=== PATIENT | male | born 1990 | race Caucasian/White ===

== ENCOUNTER 2018-05-16 07:39 | Emergency (ER) | payer BC, SELFPAY ==
--- NOTE | 2018-05-16 08:13 | ER ---
Nurse's Notes [facility] Name: Fred Billings Age: 27 yrs Sex: Male : 1990 Arrival Date: 05/16/2018 Time: 07:41 Bed 18 Private MD: Wilson Velasquez R Diagnosis: Hemorrhoids and perianal venous thrombosis Presentation: 05/16 07:51 Presenting complaint: Patient states: "I have had a hemorrhoid for about 2 weeks, I em have been using OTC stuff but it is not working. I am here to get it removed" denies fever or bleeding, rates pain 9/10. Transition of care: patient was not received from another setting of care. Onset of symptoms was May 01, 2018. Risk Assessment: Do you want to hurt yourself or someone else? Patient reports no desire to harm self or others. Initial Sepsis Screen: Does the patient meet any 2 criteria? No. Patient's initial sepsis screen is negative. Does the patient have a suspected source of infection? No. Patient's initial sepsis screen is negative. Care prior to arrival: None. 07:51 Method Of Arrival: Ambulatory em 08:00 Acuity: NORIS 4 hb Triage Assessment: 07:55 General: Appears in no apparent distress. uncomfortable, Behavior is calm, cooperative. em Pain: Complains of pain in rectum Pain currently is 9 out of 10 on a pain scale. Historical: - Allergies: 07:55 No Known Allergies; em - Home Meds: 07:55 None [Active]; em - PMHx: 07:55 None; em - PSHx: 07:55 None; em - Immunization history:: Adult Immunizations up to date. - Social history:: Smoking status: Patient/guardian denies using tobacco. - Ebola Screening: : Patient negative for fever greater than or equal to 101.5 degrees Fahrenheit, and additional compatible Ebola Virus Disease symptoms Patient denies exposure to infectious person Patient denies travel to an Ebola-affected area in the 21 days before illness onset No symptoms or risks identified at this time. Screenin:55 Abuse screen: Denies threats or abuse. Nutritional screening: No deficits noted. em Tuberculosis screening: No symptoms or risk factors identified. Fall Risk None identified. Assessment: 08:04 General: Appears in no apparent distress. uncomfortable, Behavior is calm, cooperative, em Denies fever. Pain: Complains of pain in rectum Pain currently is 9 out of 10 on a pain scale. Neuro: Level of Consciousness is awake, alert, obeys commands, Oriented to person, place, time, situation. Cardiovascular: Capillary refill < 3 seconds Patient's skin is warm and dry. Respiratory: Airway is patent Respiratory effort is even, unlabored, Respiratory pattern is regular, symmetrical. GI: Abdomen is flat. : No deficits noted. EENT: No signs and/or symptoms were reported regarding the EENT system. Derm: Skin is intact, is healthy with good turgor, Skin is pink, warm \\T\\ dry. Musculoskeletal: Capillary refill < 3 seconds, Range of motion: intact in all extremities. 08:12 Reassessment: I agree with previous assessment. hb Vital Signs: 07:55 BP 175 / 115; Pulse 85; Resp 18; Temp 97.9(TE); Pulse Ox 100% on R/A; Weight 113.4 kg; em Height 6 ft. 0 in. (182.88 cm); Pain 9/10; 08:21 BP 170 / 104; Pulse 87; Resp 18; Pulse Ox 99% on R/A; jb1 07:55 Body Mass Index 33.91 (113.40 kg, 182.88 cm) em 07:55 denies having BP problems, reports being anxious and nervous, provider notified em ED Course: 07:41 Patient arrived in ED. as 07:42 Wilson Velasquez MD is Private Physician. as 07:42 Papa Arcos PA is PHCP. [facility] 07:42 Cedric Adkins MD is Attending Physician. [facility] 07:43 Luis Felipe Pelletier LVN is Primary Nurse. em 07:55 Arm band placed on. em 07:55 Patient has correct armband on for positive identification. Placed in gown. Bed in low em position. Call light in reach. Side rails up X2. Pulse ox on. NIBP on. 08:09 Triage completed. hb 08:12 Alvin Alfonso MD is Referral Physician. m 08:31 No provider procedures requiring assistance completed. Patient did not have IV access em during this emergency room visit. Administered Medications: No medications were administered Outcome: 08:12 Discharge ordered by MD. martinez 08:31 Discharged to home ambulatory. em 08:31 Condition: good 08:31 Discharge instructions given to patient, Instructed on discharge instructions, follow up and referral plans. medication usage, Demonstrated understanding of instructions, follow-up care, medications, Prescriptions given X 1. 08:32 Patient left the ED. em Signatures: Blayne Crawford jb1 Papa Arcos PA PA octaviom Luis Felipe Pelletier, K 8 SCHOOL PRINCIPAL K 8 SCHO[employer] PRINCIPAL em Veronica Aguayo Heather, RN RN Corrections: (The following items were deleted from the chart) 08:11 07:55 BP 175 / 115; Pulse 85bpm; Resp 18bpm; Pulse Ox 100% RA; Temp 97.9F Temporal; em 113.4 kg; Height 6 ft. 0 in.; BMI: 33.9; Pain 9/10; em
--- NOTE | 2018-05-16 08:14 | EDPHYS ---
Physician Documentation [facility] Name: Fred Billings Age: 27 yrs Sex: Male : 1990 Arrival Date: 05/16/2018 Time: 07:41 Bed 18 Private MD: Wilson Velasquez R ED Physician Cedric Adkins HPI: 05/16 08:08 This 27 yrs old Male presents to ER via Ambulatory with complaints of jmm Hemorrhoids. 08:08 The patient presents to the emergency department with pain in the rectal area. Onset: jmm The symptoms/episode began/occurred gradually, 2 week(s) ago. Associate signs and symptoms: Pertinent negatives: abdominal pain, constipation, fever. This is a 27 year old male with no chronic medical conditions that presents to the ED with complaints of rectal pain and swelling. patient has taken otc medication with no relief. patient denies fever, patient denies abdominal pain. Historical: - Allergies: 07:55 No Known Allergies; em - Home Meds: 07:55 None [Active]; em - PMHx: 07:55 None; em - PSHx: 07:55 None; em - Immunization history:: Adult Immunizations up to date. - Social history:: Smoking status: Patient/guardian denies using tobacco. - Ebola Screening: : Patient negative for fever greater than or equal to 101.5 degrees Fahrenheit, and additional compatible Ebola Virus Disease symptoms Patient denies exposure to infectious person Patient denies travel to an Ebola-affected area in the 21 days before illness onset No symptoms or risks identified at this time. ROS: 08:08 Constitutional: Negative for fever, chills, and weight loss. jmm 08:08 Abdomen/GI: Positive for rectal pain. 08:08 All other systems are negative. Exam: 08:08 Constitutional: This is a well developed, well nourished patient who is awake, alert, jmm and in no acute distress. Head/Face: atraumatic. Eyes: EOMI, no conjunctival erythema appreciated ENT: Moist Mucus Membranes Neck: Trachea midline, Supple Chest/axilla: Normal chest wall appearance and motion. Cardiovascular: Regular rate and rhythm. No edema appreciated Respiratory: Normal respirations, no respiratory distress appreciated Abdomen/GI: Non distended, soft Back: Normal ROM 08:08 Skin: General appearance color normal MS/ Extremity: Moves all extremities, no obvious deformities appreciated, no edema noted to the lower extremities Neuro: Awake and alert, normal gait Psych: Behavior is normal, Mood is normal, Patient is cooperative and pleasant 08:08 Abdomen/GI: Rectal exam: hemorrhoid(s), external, with inflammation, with pain. Vital Signs: 07:55 BP 175 / 115; Pulse 85; Resp 18; Temp 97.9(TE); Pulse Ox 100% on R/A; Weight 113.4 kg; em Height 6 ft. 0 in. (182.88 cm); Pain 9/10; 08:21 BP 170 / 104; Pulse 87; Resp 18; Pulse Ox 99% on R/A; jb1 07:55 Body Mass Index 33.91 (113.40 kg, 182.88 cm) em 07:55 denies having BP problems, reports being anxious and nervous, provider notified em MDM: 08:06 Patient medically screened. [facility] 08:08 Data reviewed: vital signs, nurses notes. Counseling: I had a detailed discussion with [facility] the patient and/or guardian regarding: the historical points, exam findings, and any diagnostic results supporting the discharge/admit diagnosis, the need for outpatient follow up, to return to the emergency department if symptoms worsen or persist or if there are any questions or concerns that arise at home. ED course: Hemorrhoid is soft but inflammed. Patient will be put on a course of topical steroids and advised to follow up with GI for further evaluation. patient is otherwise given return precautions for increased pain, increased swelling, or fever. Patient understood and agrees with the plan of care. . 08:27 Counseling: I had a detailed discussion with the patient and/or guardian regarding: the [facility] presence of at least one elevated blood pressure reading (>120/80) during this emergency department visit. 03 07:44 Order name: Torin cruz; Complete Time: 07:51 [facility] Administered Medications: No medications were administered Disposition: 12:28 Co-signature as Attending Physician, Cedric Adkins MD I agree with the assessment and kdr plan of care. Disposition: 05/16/18 08:12 Discharged to Home. Impression: Hemorrhoids and perianal venous thrombosis. - Condition is Stable. - Discharge Instructions: Hemorrhoids, Nonsurgical Procedures for Hemorrhoids. - Prescriptions for Anusol- HC 2.5 % Rectal Cream - Apply to affected area 1 application by TOPICAL route every 8 hours As needed; 30 gram. - Medication Reconciliation Form, Thank You Letter, Antibiotic Education, Prescription Opioid Use form. - Follow up: Alvin Alfonso MD; When: 2 - 3 days; Reason: Recheck today's complaints, Continuance of care, Re-evaluation by your physician. Signatures: Cedric Adkins MD MD kdr Mickail, Joel, PA PA jmm Munoz, Edgar, LVN OIL GAUGER em Corrections: (The following items were deleted from the chart) 08:32 08:12 05/16/2018 08:12 Discharged to Home. Impression: Hemorrhoids and perianal venous em thrombosis. Condition is Stable. Forms are Medication Reconciliation Form, Thank You Letter, Antibiotic Education, Prescription Opioid Use. Follow up: Alvin Alfonso; When: 2 - 3 days; Reason: Recheck today's complaints, Continuance of care, Re-evaluation by your physician. michelle
== END 2018-05-16 08:32 | disposition home or self-care (01) ==
LOC: ER 07:39
DX: K64.5 Perianal venous thrombosis (principal); K64.9 Unspecified hemorrhoids
CPT/HCPCS: 99283

== ENCOUNTER 2022-09-03 06:55 | Emergency (ER) | payer SELFPAY ==
[2022-09-03] MEDS ORDERED: ONDANSETRON 4 MG/2 ML VIAL ONE (07:32)
[2022-09-03] MEDS ORDERED: NA CHLORIDE 0.9% 2,000 ML ONE (07:32)
[2022-09-03] MEDS ORDERED: KETOROLAC 30 MG/ML INJ ONE (07:33)
--- NOTE | 2022-09-03 08:00 | RAD REPORT ---
EXAM DESCRIPTION: Jatinder Single View09/03/2022 7:50 am CLINICAL HISTORY: CHEST PAIN COMPARISON: No comparisons TECHNIQUE: Portable AP view of the chest. FINDINGS: The lungs are clear apart from mild central interstitial prominence/streaky opacities. No pneumothorax or effusion. The cardiomediastinal contours are unremarkable. IMPRESSION: Mild central interstitial prominence or streaky opacities, could reflect mild interstiti al edema or infection, or reactive airway changes.
[2022-09-03 08:03] LABS: Absolute Lymphocytes (CBC) 0.5 K/uL (0.7-4.9); Hematocrit 50.9 % (39.6-49.0); Lymphocytes % 2.6 % (15.3-44.8); MCV 88.1 fL (80-100); MPV 7.9 fL (7.6-11.3); RBC Red Blood Cell Count 5.78 M/uL (4.33-5.43)
[2022-09-03 08:18] LABS: Albumin 4.1 g/dL (3.4-5.0); Bilirubin Total 1.3 mg/dL (0.2-1.0); Potassium 3.4 mEq/L (3.5-5.1); Protein, Total 8.6 g/dL (6.4-8.2)
--- NOTE | 2022-09-03 08:42 | RAD REPORT ---
EXAM DESCRIPTION: CT - Abdomen Pelvis W Contrast - 09/03/2022 8:19 am CLINICAL HISTORY: RLQ tendernes;Rebound tenderness COMPARISON: No comparisons TECHNIQUE: Thin cut axial CT imaging of the abdomen and pelvis was performed following intravenous a dministration of 100 mL Isovue 300. Multiplanar reformats were generated and reviewed. All CT scans are performed using dose optimization technique as appropriate and may include automated exposure control or mA/KV adjustment according to patient size. FINDINGS: No suspicious findings in the lung bases. The liver, spleen, and pancreas show no suspicious findings. Gallbladder and biliary tree are also wi thout suspicious finding. Symmetric renal function is seen with no hydronephrosis or suspicious renal mass. Mild fluid distention throughout proximal to mid small bowel with short-segment air-fluid levels. No focal transition point. No bowel wall thickening. The appendix is not well visualized. No free air, f ree fluid or inflammatory stranding. No hernia, mass or bulky lymphadenopathy. The urinary bladder is without significant finding. No suspicious bony findings. IMPRESSION: Proximal to mid small bowel mild fluid distention. Findings could relate to early ileus or enteritis.
[2022-09-03 09:09] LABS: Protime INR 1.06
[2022-09-03 09:10] LABS: Blood Morphology Comment NOT SEEN (NOT SEEN); Platelet Estimate ADEQ; White Blood Cell Scan OK (OK)
[2022-09-03 09:43] LABS: Urine Bacteria None Seen /HPF (<20); Urine Bilirubin NEGATIVE (Negative); Urine Blood Negative (Negative); Urine Clarity Clear (Clear); Urine Color Light-Yellow (Yellow); Urine Glucose NEGATIVE (Negative); Urine Mucus Slight /HPF (None Seen); Urine Protein 1+ (Negative); Urine RBC <5 /HPF (None Seen); Urine Urobilinogen Normal (Normal); Urine pH 7.5 (5.0-7.0)
[2022-09-03 09:50] LABS: Specific Gravity > 1.030 (1.005-1.030)
[2022-09-03] MEDS ORDERED: NA CHLORIDE 0.9% 1,000 ML ONE (10:03)
--- NOTE | 2022-09-03 10:28 | RAD REPORT ---
EXAM DESCRIPTION: CT - Thorax Wo Con - 09/03/2022 9:50 am CLINICAL HISTORY: CONGESTION COMPARISON: Abdomen Pelvis W Contrast dated 09/03/2022 TECHNIQUE: Axial thin cut images of the chest were obtained without IV contrast. Multiplanar reforma ts were generated and reviewed. All CT scans are performed using dose optimization technique as appropriate and may include automated exposure control or mA/KV adjustment according to patient size. FINDINGS: No mass or infiltrate in the lung parenchyma. No pleural thickening or pleural effusion. N o pneumothorax. No abnormal mediastinal or hilar masses or lymphadenopathy seen. No significant aortic or pulmonary a rtery findings. Assessment is limited in the absence of IV contrast. No chest wall mass or abnormal axillary lymphadenopathy. Evaluation of the solid abdominal structures reveals no suspicious findings. Diffuse hepatic parenchy mal hypoattenuation suggesting steatosis. Hyperdensities at the upper renal collecting systems may re late to contrast excretion. Incidentally noted small hemangioma within the body of T11. IMPRESSION: No acute process within the chest. Incidental findings as above.
[2022-09-03] MEDS ORDERED: PANTOPRAZOLE 40 MG INJ ONE (11:28)
--- NOTE | 2022-09-03 12:23 | ER ---
Nurse's Notes [facility] Name: Fred Billings Age: 32 yrs Sex: Male : 1990 Arrival Date: 09/03/2022 Time: 06:55 Bed 15 Private MD: Diagnosis: Essential (primary) hypertension;Vomiting Presentation: 09/03 07:10 Chief complaint: Patient states: he has had RLQ abdominal pain since midnight with ko1 nausea and vomiting and diarrhea. He also feels generalized weakness. Coronavirus screen: At this time, the client does not indicate any symptoms associated with coronavirus-19. Ebola Screen: No symptoms or risks identified at this time. Initial Sepsis Screen: Does the patient meet any 2 criteria? No. Patient's initial sepsis screen is negative. Initial Sepsis Screen: Does the patient meet any 2 criteria?. Initial Sepsis Screen: Does the patient meet any 2 criteria? No. Patient's initial sepsis screen is negative. Does the patient have a suspected source of infection? No. Patient's initial sepsis screen is negative. Risk Assessment: Do you want to hurt yourself or someone else? Patient reports no desire to harm self or others. Onset of symptoms was September 03, 2022 at 00:01. Care prior to arrival: None. Activity prior to arrival: Hyperventilating, vomiting. 07:10 Method Of Arrival: Ambulatory ko1 07:10 Acuity: NORIS 3 ko1 Triage Assessment: 07:20 General: Appears distressed, uncomfortable, ill, Behavior is calm, appropriate for age. ko1 Pain: Complains of pain in right lower quadrant. Respiratory: Reports shortness of breath at rest Onset: The symptoms/episode began/occurred gradually, the patient has moderate shortness of breath. Historical: - Allergies: 07:20 PENICILLINS; ko1 - Home Meds: 07:20 None [Active]; ko1 - PMHx: 07:20 None; ko1 - Immunization history:: Adult Immunizations unknown. - Social history:: Smoking status: Patient denies any tobacco usage or history of. Screenin:29 [facility] ED Fall Risk Assessment (Adult) History of falling in the last 3 months, ko1 including since admission No falls in past 3 months (0 pts) Confusion or Disorientation No (0 pts) Intoxicated or Sedated No (0 pts) Impaired Gait No (0 pts) Mobility Assist Device Used No (0 pt) Altered Elimination No (0 pt) Score/Fall Risk Level 0 - 2 = Low Risk Oriented to surroundings, Maintained a safe environment, Educated pt \T\ family on fall prevention, incl call for assistance when getting out of bed, Assessed \T\ reinforced patient's understanding of fall precautions, Provided non-skid footwear, Hourly rounding (assess needs \T\ fall precautionary measures) done, Used ambulatory aids as needed (educated on \T\ assisted with), Used gait belt as appropriate. Abuse screen: Denies threats or abuse. Denies injuries from another. Nutritional screening: No deficits noted. Tuberculosis screening: No symptoms or risk factors identified. Assessment: 07:29 Reassessment: labs delayed due to difficult IV start. Neuro: No deficits noted. ko1 Cardiovascular: Rhythm is sinus tachycardia. Respiratory: Airway is patent Respiratory effort is even, Respiratory pattern is tachypnea Breath sounds are clear. GI: Reports lower abdominal pain, diarrhea, nausea, vomiting, since midnight. : No deficits noted. EENT: No deficits noted. Derm: No deficits noted. Musculoskeletal: No deficits noted. Vital Signs: 07:10 BP 191 / 114; Pulse 118; Resp 20; Temp 98.1; Pulse Ox 100% ; ko1 07:29 BP 170 / 122; Pulse 113; Resp 20; Pulse Ox 100% ; ko1 08:00 BP 152 / 127; Pulse 110; Resp 22; Pulse Ox 100% ; ko1 08:45 BP 157 / 105; Pulse 112; Resp 19; Pulse Ox 99% on R/A; ko1 08:54 BP 151 / 113; Pulse 106; Resp 28; Pulse Ox 100% ; ko1 09:19 Weight 117.93 kg; Height 6 ft. 2 in. ; em1 11:26 BP 161 / 126; Pulse 106; Resp 18; Pulse Ox 99% on R/A; ko1 12:04 BP 170 / 105; Pulse 104; Resp 22; Pulse Ox 99% ; ko1 09:19 Body Mass Index 33.38 (117.93 kg, 187.96 cm) em1 ED Course: 06:56 Patient arrived in ED. ja2 07:01 Karol Clinton RN is Primary Nurse. ko1 07:05 Elio Lunsford MD is Attending Physician. bs3 07:20 Triage completed. ko1 07:20 Arm band placed on right wrist. Patient placed in an exam room, on a stretcher, on ko1 pulse oximetry. 07:20 Missed attempt(s): 20 gauge in left antecubital area. ko1 07:29 Patient has correct armband on for positive identification. Bed in low position. Call ko1 light in reach. Side rails up X 1. Pulse ox on. NIBP on. Door closed. Noise minimized. Lights dimmed. Warm blanket given. 07:52 XRAY Chest (1 view) In Process Unspecified. EDMS 07:56 Inserted saline lock: 22 gauge in left antecubital area, using aseptic technique. ss ,using aseptic technique. US guided. Pt tolerated well. Blood collected. 08:02 CBC with Diff Sent. ko1 08:02 Comprehensive Metabolic Panel Sent. ko1 08:21 CT Abd/Pelvis - IV Contrast Only In Process Unspecified. EDMS 08:45 Blood Culture Adult (2) Sent. ko1 08:45 Lactate w/ 2H reflex if indic. Sent. ko1 08:46 CBC Smear Scan Sent. ko1 08:53 Protime (+inr) Sent. ko1 08:53 Ptt, Activated Sent. ko1 09:01 EKG done, by ED staff, reviewed by Elio Lunsford MD. em1 09:22 Troponin High Sensitivity Sent. ko1 09:30 Urinalysis w/ reflexes Sent. ko1 09:52 CT Chest Wo Con In Process Unspecified. EDMS 12:23 No provider procedures requiring assistance completed. IV discontinued, intact, ko1 bleeding controlled, No redness/swelling at site. Pressure dressing applied. Administered Medications: 08:01 Drug: NS 0.9% IV 2000 ml Route: IV; Rate: 1000 ml; Site: left antecubital; ko1 11:23 Follow up: Response: No adverse reaction; IV Status: Completed infusion; IV Intake: ko1 2000ml 08:01 Drug: Ondansetron IVP 4 mg Route: IVP; Site: left antecubital; ko1 11:23 Follow up: Response: No adverse reaction; Nausea is decreased ko1 08:01 Drug: Ketorolac IVP 15 mg Route: IVP; Site: left antecubital; ko1 11:24 Follow up: Response: No adverse reaction; Pain is decreased ko1 08:47 Drug: Rocephin IV 1 grams Route: IV; Rate: 1 bolus; Site: left antecubital; ko1 11:23 Follow up: Response: No adverse reaction ko1 09:53 Drug: NS 0.9% IV (30 ml/kg) 30 ml/kg Route: IV; Rate: bolus; Site: left antecubital; ko1 11:25 Follow up: IV Status: Completed infusion ko1 11:19 Drug: Pantoprazole IVP 40 mg Route: IVP; Site: left antecubital; ko1 11:25 Follow up: Response: No adverse reaction ko1 Medication: 07:29 VIS not applicable for this client. ko1 Intake: 11:23 IV: 2000ml; Total: 2000ml. ko1 Outcome: 12:23 Discharge ordered by . bs3 12:23 Discharged to home ambulatory, with family. ko1 12:23 Condition: improved 12:23 Discharge instructions given to patient, family, Instructed on discharge instructions, follow up and referral plans. medication usage, Demonstrated understanding of instructions, follow-up care, medications, Prescriptions given X 3. 12:39 Patient left the ED. ko1 Signatures: Dispatcher [employer] EDMS Daniel Aguayo em1 La Nena Mireles, RN RN ss Ginny Alegria Brandon, MD MD bs3 Karol Clinton, JENNIFER RN ko1 Corrections: (The following items were deleted from the chart) 07:20 07:20 Allergies: No Known Allergies; ko1 ko1 11:43 11:22 LACTATE+C.LAB.BRZ drawn and sent. ko1 EDMS
--- NOTE | 2022-09-03 12:23 | EDPHYS ---
Physician Documentation [facility] Name: Fred Billings Age: 32 yrs Sex: Male : 1990 Arrival Date: 09/03/2022 Time: 06:55 Bed 15 Private MD: ED Physician Elio Lunsford HPI: 09/03 07:13 This 32 yrs old Male presents to ER via Unassigned with complaints of bs3 Breathing Difficulty, Flank Pain, Vomiting. 07:13 pt notes right lower abdominal pain since yesterday, associated nausea, vomiting, some bs3 diarrhea, pain moderate in intensity, progressive over time, he also notes a vague breathing difficulty associated with his pain. No recent travel, immbolization, hx of pe/dvd, leg swelling, recent travel or anything else bother him. Never had this pain before, no urinary symptoms. . Historical: - Allergies: 07:20 PENICILLINS; ko1 - Home Meds: 07:20 None [Active]; ko1 - PMHx: 07:20 None; ko1 - Immunization history:: Adult Immunizations unknown. - Social history:: Smoking status: Patient denies any tobacco usage or history of. ROS: 07:13 Constitutional: Negative for fever, chills bs3 07:13 All other systems are negative. Exam: 07:13 Constitutional: This is a well developed, well nourished patient who is awake, alert, bs3 and in no acute distress. Head/Face: Normocephalic, atraumatic. Eyes: Pupils equal round and reactive to light, extra-ocular motions intact. Lids and lashes normal. ENT: mmm, no posterior phyarngeal erythema Neck: Trachea midline, no thyromegaly, no neck stiffness Chest/axilla: Normal chest wall appearance and motion. Nontender with no deformity. No lesions are appreciated. Cardiovascular: Tachycardic, no murmur Respiratory: Lungs have equal breath sounds bilaterally, clear to auscultation, no respiratory distress Abdomen/GI: Tender in right lower quadrant with guarding no peritoneal signs Back: No spinal tenderness. No costovertebral tenderness. Full range of motion. Skin: Warm, dry with normal turgor. Normal color with no rashes, no lesions, and no evidence of cellulitis. MS/ Extremity: Pulses equal, no cyanosis. Neurovascular intact. Full, normal range of motion. Neuro: Awake and alert, GCS 15, oriented to person, place, time, and situation. Cranial nerves II-XII grossly intact. Motor strength 5/5 in all extremities. Sensory grossly intact. Psych: Awake, alert, with orientation to person, place and time. Behavior, mood, and affect are within normal limits. Vital Signs: 07:10 BP 191 / 114; Pulse 118; Resp 20; Temp 98.1; Pulse Ox 100% ; ko1 07:29 BP 170 / 122; Pulse 113; Resp 20; Pulse Ox 100% ; ko1 08:00 BP 152 / 127; Pulse 110; Resp 22; Pulse Ox 100% ; ko1 08:45 BP 157 / 105; Pulse 112; Resp 19; Pulse Ox 99% on R/A; ko1 08:54 BP 151 / 113; Pulse 106; Resp 28; Pulse Ox 100% ; ko1 09:19 Weight 117.93 kg; Height 6 ft. 2 in. ; em1 11:26 BP 161 / 126; Pulse 106; Resp 18; Pulse Ox 99% on R/A; ko1 12:04 BP 170 / 105; Pulse 104; Resp 22; Pulse Ox 99% ; ko1 09:19 Body Mass Index 33.38 (117.93 kg, 187.96 cm) em1 MDM: 07:05 Patient medically screened. bs3 11:18 Data reviewed: vital signs, nurses notes. ED course: Patient reassessed feeling much bs3 better. 11:54 ED course: Lactate improving on reassessment after IV fluid patient feeling much better.bs3 11:57 ED course: Labs notable for his leukocytosis and elevated glucose no anion gap he is bs3 markedly hypertensive he states that he has been hypertensive for years and has never followed up with a primary care doctor. 12:20 ED course: pt feeling much better, requesting to go home and sleep, will prescribe bs3 antihypertensive, and metformin to start if greater than 126 fasting, will give antiemetic. . 09/03 07:13 Order name: Comprehensive Metabolic Panel; Complete Time: 08:51 bs3 09/03 07:13 Order name: CBC with Diff; Complete Time: 09:16 bs3 09/03 07:13 Order name: Urinalysis w/ reflexes; Complete Time: 09:56 bs3 09/03 08:07 Order name: CBC Smear Scan; Complete Time: 09:16 EDMS 09/03 08:18 Order name: Blood Culture Adult (2) bs3 09/03 08:18 Order name: Lactate w/ 2H reflex if indic.; Complete Time: 09:16 bs3 09/03 08:18 Order name: Protime (+inr); Complete Time: 09:16 bs3 09/03 08:18 Order name: Ptt, Activated; Complete Time: 09:16 bs3 09/03 08:52 Order name: BNP; Complete Time: 09:16 bs3 09/03 09:19 Order name: Troponin High Sensitivity; Complete Time: 09:56 bs3 09/03 11:47 Order name: Lactate Sepsis 2 HR Follow-up; Complete Time: 11:49 EDMS 09/03 12:29 Order name: Glucose, Ancillary Testing EDMS 09/03 07:13 Order name: XRAY Chest (1 view); Complete Time: 08:17 bs3 09/03 07:13 Order name: CT Abd/Pelvis - IV Contrast Only; Complete Time: 08:51 bs3 09/03 09:19 Order name: CT Chest Wo Con; Complete Time: 10:30 bs3 09/03 08:18 Order name: EKG; Complete Time: 08:19 bs3 09/03 08:18 Order name: Accucheck; Complete Time: 08:46 bs3 09/03 08:18 Order name: Cardiac monitoring; Complete Time: 08:26 bs3 09/03 08:18 Order name: EKG - Nurse/Tech; Complete Time: 08:53 bs3 09/03 08:18 Order name: IV Saline Lock - Large Bore; Complete Time: 08:26 bs3 09/03 08:18 Order name: Labs collected and sent; Complete Time: 08:46 bs3 09/03 08:18 Order name: O2 Per Protocol; Complete Time: 08:26 bs3 09/03 08:18 Order name: O2 Sat Monitoring; Complete Time: 08:26 bs3 09/03 08:18 Order name: Vital Signs; Complete Time: 08:26 bs3 Administered Medications: 08:01 Drug: NS 0.9% IV 2000 ml Route: IV; Rate: 1000 ml; Site: left antecubital; ko1 11:23 Follow up: Response: No adverse reaction; IV Status: Completed infusion; IV Intake: ko1 2000ml 08:01 Drug: Ondansetron IVP 4 mg Route: IVP; Site: left antecubital; ko1 11:23 Follow up: Response: No adverse reaction; Nausea is decreased ko1 08:01 Drug: Ketorolac IVP 15 mg Route: IVP; Site: left antecubital; ko1 11:24 Follow up: Response: No adverse reaction; Pain is decreased ko1 08:47 Drug: Rocephin IV 1 grams Route: IV; Rate: 1 bolus; Site: left antecubital; ko1 11:23 Follow up: Response: No adverse reaction ko1 09:53 Drug: NS 0.9% IV (30 ml/kg) 30 ml/kg Route: IV; Rate: bolus; Site: left antecubital; ko1 11:25 Follow up: IV Status: Completed infusion ko1 11:19 Drug: Pantoprazole IVP 40 mg Route: IVP; Site: left antecubital; ko1 11:25 Follow up: Response: No adverse reaction ko1 Disposition Summary: 09/03/22 12:23 Discharge Ordered Location: Home bs3 Problem: new bs3 Symptoms: have improved bs3 Condition: Stable bs3 Diagnosis - Essential (primary) hypertension bs3 - Vomiting bs3 Followup: bs3 - With: Private Physician - When: 2 - 3 days - Reason: Re-evaluation by your physician Discharge Instructions: - Discharge Summary Sheet bs3 - Hypertension, Adult bs3 - Vomiting, Adult bs3 - Diabetes Mellitus Basics bs3 Forms: - Medication Reconciliation Form bs3 - Thank You Letter bs3 - Antibiotic Education bs3 - Prescription Opioid Use bs3 - [email or web address] bs3 Prescriptions: - amlodipine 10 mg Oral tablet - take 1 tablet by ORAL route daily for 30 days; 30 tablet; Refills: 0, Product bs3 Selection Permitted - Metformin 500 mg Oral Tablet - take 1 tablet by ORAL route once daily for 30 days Then take 1 tablet with bs3 morning meals AND evening meals; 30 tablet; Refills: 0, Product Selection Permitted - ondansetron 8 mg Oral tablet,disintegrating - take 1 tablet by ORAL route every 12 hours; 12 tablet; Refills: 0, Product bs3 Selection Permitted Signatures: Dispatcher [employer] Elio Devries MD MD bs3 Karol Clinton, RN RN ko1 Corrections: (The following items were deleted from the chart) 07:20 07:20 Allergies: No Known Allergies; ko1 ko1 11:43 11:02 LACTATE+C.LAB.BRZ ordered. EDMS EDMS
[2022-09-03 12:54] VITALS: TEMP 98.1
[2022-09-03 13:09] VITALS: O2SAT 99
[2022-09-03 13:10] VITALS: BP 170/105
--- NOTE | 2022-09-04 20:41 | EKG ---
Test Date: 2022-09-03 Test Time: 08:57:51 Teleradiologist: KATLYN MEASUREMENT RESULTS: Intervals: Rate: 110 [place]: 156 QRSD: 114 QT: 348 QTc: 470 [place]: P: 59 [place]: 156 QRS: 91 T: 92 INTERPRETIVE STATEMENTS: Sinus tachycardia Nonspecific T wave abnormality Abnormal ECG Compared to ECG 03/22/2013 03:27:02 T-wave abnormality now present Sinus rhythm no longer present Sinus arrhythmia no longer present Electronically Signed On 09-04-22 20:33:22 CDT by Neel Bonilla
== END 2022-09-03 12:39 | disposition home or self-care (01) ==
LOC: ER 06:55
DX: R11.10 Vomiting, unspecified (principal); I10 Essential (primary) hypertension
CPT/HCPCS: 36415; 71045; 71250; 74177; 80053; 81001; 82947; 83605; 83880; 84484; 85025; 85610; 85730; 87040; 93005; C9113; J2405; J7030; Q9967

== ENCOUNTER 2024-07-21 00:46 | Emergency (ER) | payer BC, SELFPAY ==
--- OUTSIDE RECORDS SUMMARY | 2024-07-21 00:50 | XMS REPORT | Continuity of Care Document ---
Author Name Unknown Address [address] [facility] [place] [address] [facility] Address [address] [facility] [place] [address] Care Team Providers Care Brake Operator Name Role Phone WHITNEYKOURTNEYRAGHAV JAUNELLIOTT Primary Care Physician Unavailable Jordan MCCRACKEN, Sharri Rick Attending Clinician ASHIA LUA Attending Clinician Unavailable Ashia Lua MD Attending Clinician ASHIA LUA Admitting Clinician Unavailable Payers Payer Name Policy Type Policy Number Effective Date Expirati on Date Source Allergies, Adverse Reactions, Alerts Allergy Name Allergy Type Status Severity Reaction(s) Onset Date Inactive Date Treating Clinician Comments Source PENICILL INS Drug Class Active Rash 2022-03 00:00: 00 [facility] acute hospital Penicill ins Propensi ty to adverse reaction s Active Rash 2022-03 2 00:00: 00 General acute hospital Penicill ins - CLASS Propensi ty to adverse reaction to drug Active 09-24 00:00: 00 Radu Hodges NO KNOWN ALLERGIE S Drug Class Active General acute hospital Social History Social Habit Start Date Stop Date Quantity Comments Source Sexual orientation U [facility] Sex Assigned At 1990 00:00:00 1990 00:00:00 [facility] Smoking Status Start Date Stop Date Source Tobacco smoking consumption unknown [facility] Medications Ordered Medication Name Filled Medication Name Start Date Stop Date Current Medication? Ordering Clinician Indication Dosage Frequency Signature (SIG) Comments Components Source lisinopril 20 mg tablet 03-23 00:00: 00 Yes mg Radu Hodges metoprolol succinate ER 100 mg tablet,exte nded release 24 hr 03-23 00:00: 00 Yes mg Radu Hodges amlodipine 10 mg tablet 03-23 00:00: 00 Yes mg Radu Hodges lisinopril 20 mg tablet 10-15 00:00: 00 Yes mg Radu Hodges metoprolol succinate ER 100 mg tablet,exte nded release 24 hr 10-15 00:00: 00 Yes mg Radu Hodges amlodipine 10 mg tablet 8 00:00: 00 Yes mg Radu Hodges pravastatin 20 mg tablet 10-15 00:00: 00 Yes 1mg Radu Hodges metoprolol succinate ER 100 mg tablet,exte nded release 24 hr - 00:00: 00 Yes mg Radu Hodges lisinopril 20 mg tablet 10-10 00:00: 00 Yes mg Radu Hodges amlodipine 10 mg tablet 10-10 00:00: 00 Yes mg Radu Hodges pravastatin 20 mg tablet 10-10 00:00: 00 Yes 1mg Radu Hodges lisinopril 20 mg tablet 07-10 00:00: 00 Yes mg Radu Hodges metoprolol succinate ER 100 mg tablet,exte nded release 24 hr 07-10 00:00: 00 Yes mg Radu Hodges amlodipine 10 mg tablet 07-10 00:00: 00 Yes mg Radu Hodges TAKE 1 TABLET DAILY 04-08 00:00: 00 Yes 20 Radu Hodges TAKE 1 TABLET DAILY. 04-08 00:00: 00 Yes 20 Radu Hodges TAKE 1 TABLET BY MOUTH EVERY DAY 04-08 00:00: 00 Yes 10 Radu Hodges TAKE 1 TABLET BY MOUTH DAILY 2022-03 0-09 00:00: 00 07-16 00:00 :00 No 10 Radu Hodges TAKE 1 TABLET DAILY. 9 00:00: 00 07-16 00:00 :00 No 20 Radu Hodges TAKE 1 TABLET DAILY. 9-13 00:00: 00 07-16 00:00 :00 No 20 Radu Hodges TAKE 1 TABLET DAILY. 8-14 00:00: 00 07-16 00:00 :00 No 100 Radu Hodges TAKE 1 TABLET DAILY. 8-14 00:00: 00 07-16 00:00 :00 No 5 Radu Hodges TAKE 1 TABLET DAILY. 8-14 00:00: 00 07-16 00:00 :00 No 10 Radu Hodges TAKE 1 TABLET TWICE DAILY. 7-17 00:00: 00 07-16 00:00 :00 No 50 Radu Hodges TAKE 1 TABLET BY MOUTH WITH MORNING MEALS AND 1 TABLET WITH EVENING MEALS 09-03 00:00: 00 Yes Radu Hodges TAKE 1 TABLET BY MOUTH EVERY DAY FOR 30 DAYS 09-03 00:00: 00 Yes Radu Hodges TAKE 1 TABLET BY MOUTH EVERY 12 HOURS 09-03 00:00: 00 Yes Radu Hodges Vital Signs Vital Name Observation Time Observation Value Comments S ource Systolic blood pressure 2023-02-15 16:00:00 118 mm[Hg] [facility] Diastolic blood pressure 2023-02-15 16:00:00 64 mm[Hg] [facility] Heart rate 2023-02-15 16:00:00 79 /min [facility] Respiratory rate 2023-02-15 16:00:00 15 /min [facility] Oxygen saturation in Arterial blood by Pulse oximetry 2023-02-15 16:00:00 97 /min [facility] Body temperature 2023-02-15 14:25:00 37.61 Michelle [facility] Body height 2023-02-15 14:25:00 182.9 cm [facility] Body weight 2023-02-15 14:25:00 127.007 kg [facility] BMI 2023-02-15 14:25:00 37.97 kg/m2 [facility] BP Systolic 2024-03-23 16:26:00 124 mm[Hg] Step hen [facility] BP Diastolic 2024-03-23 16:26:00 87 mm[Hg] Get phen F [facility] Weight Measured 2024-03-23 16:26:00 292.20 pounds Radu F Carroll Height Measured 2024-03-23 16:26:00 72.00 inches Radu F Carroll Body Temperature 2024-03-23 16:26:00 97.90 degrees Radu F Carroll Heart Rate 2024-03-23 16:26:00 81.00 /min Ayla en F [facility] Respiratory Rate 2024-03-23 16:26:00 Radu F Carroll BP Systolic 2023-10-16 16:28:00 125 mm[Hg] Step hen F Carroll BP Diastolic 2023-10-16 16:28:00 82 mm[Hg] Get phen F Carroll Weight Measured 2023-10-16 16:28:00 288.40 pounds Radu F Carroll Height Measured 2023-10-16 16:28:00 72.00 inches Radu F Carroll Body Temperature 2023-10-16 16:28:00 98.40 degrees Radu F Carroll Heart Rate 2023-10-16 16:28:00 77.00 /min Ayla en F Carroll Respiratory Rate 2023-10-16 16:28:00 Radu F Carroll BP Systolic 2023-08-14 14:26:00 141 mm[Hg] Step hen F Carroll BP Diastolic 2023-08-14 14:26:00 94 mm[Hg] Get phen F Carroll Weight Measured 2023-08-14 14:26:00 Radu F Carroll Height Measured 2023-08-14 14:26:00 Radu F Carroll Body Temperature 2023-08-14 14:26:00 97.20 degrees Radu F Carroll Heart Rate 2023-08-14 14:26:00 79.00 /min Ayla en F Carroll Respiratory Rate 2023-08-14 14:26:00 Radu F Carroll BP Systolic 2023-04-08 16:39:00 140 mm[Hg] Step hen F Carroll BP Diastolic 2023-04-08 16:39:00 88 mm[Hg] Get phen F Carroll Weight Measured 2023-04-08 16:39:00 283.60 pounds Radu F Carroll Height Measured 2023-04-08 16:39:00 72.00 inches Radu F Carroll Body Temperature 2023-04-08 16:39:00 97.70 degrees Radu F Carroll Heart Rate 2023-04-08 16:39:00 82.00 /min Ayla en F Carroll Respiratory Rate 2023-04-08 16:39:00 Radu F Carroll BP Systolic 2023-01-14 17:23:00 158 mm[Hg] Step hen F Carroll BP Diastolic 2023-01-14 17:23:00 107 mm[Hg] Get phen F Carroll Weight Measured 2023-01-14 17:23:00 285.00 pounds Radu F Carroll Height Measured 2023-01-14 17:23:00 72.00 inches Radu F Carroll Body Temperature 2023-01-14 17:23:00 97.60 degrees Radu F Carroll Heart Rate 2023-01-14 17:23:00 78.00 /min Ayal en F Carroll Respiratory Rate 2023-01-14 17:23:00 Radu F Carroll BP Systolic 2022-11-22 08:22:00 163 mm[Hg] Step hen F Carroll BP Diastolic 2022-11-22 08:22:00 112 mm[Hg] Get phen F Carroll Weight Measured 2022-11-22 08:22:00 278.00 pounds Radu F Carroll Height Measured 2022-11-22 08:22:00 72.00 inches Radu F Carroll Body Temperature 2022-11-22 08:22:00 98.10 degrees Radu F Carroll Heart Rate 2022-11-22 08:22:00 70.00 /min Ayla en F Carroll Respiratory Rate 2022-11-22 08:22:00 18.00 /min Radu F Carroll BP Systolic 2022-11-21 17:19:00 152 mm[Hg] Step hen F Carroll BP Diastolic 2022-11-21 17:19:00 113 mm[Hg] Get phen F Carroll Weight Measured 2022-11-21 17:19:00 279.00 pounds Radu F Carroll Height Measured 2022-11-21 17:19:00 72.00 inches Radu F Carroll Body Temperature 2022-11-21 17:19:00 98.40 degrees Radu F Carroll Heart Rate 2022-11-21 17:19:00 80.00 /min Ayla en F Carroll Respiratory Rate 2022-11-21 17:19:00 19.00 /min Radu F Carroll BP Systolic 2022-11-01 17:23:00 162 mm[Hg] Step hen F Carroll BP Diastolic 2022-11-01 17:23:00 119 mm[Hg] Get phen F Carroll Weight Measured 2022-11-01 17:23:00 272.20 pounds Radu F Carroll Height Measured 2022-11-01 17:23:00 72.00 inches Radu F Carroll Body Temperature 2022-11-01 17:23:00 97.60 degrees Radu F Carroll Heart Rate 2022-11-01 17:23:00 86.00 /min Ayla en F Carroll Respiratory Rate 2022-11-01 17:23:00 Radu F Carroll BP Systolic 2022-10-22 17:09:00 183 mm[Hg] Step hen F Carroll BP Diastolic 2022-10-22 17:09:00 145 mm[Hg] Get phen F Carroll Weight Measured 2022-10-22 17:09:00 277.20 pounds Ardu F Carroll Height Measured 2022-10-22 17:09:00 72.00 inches Radu F Carroll Body Temperature 2022-10-22 17:09:00 98.10 degrees Radu F Carroll Heart Rate 2022-10-22 17:09:00 60.00 /min Ayla en F Carroll Respiratory Rate 2022-10-22 17:09:00 17.00 /min Radu F Carroll BP Systolic 2022-09-24 14:32:00 166 mm[Hg] Step hen F Carroll BP Diastolic 2022-09-24 14:32:00 132 mm[Hg] Get phen F Carroll Weight Measured 2022-09-24 14:32:00 272.00 pounds Radu F Carroll Height Measured 2022-09-24 14:32:00 72.00 inches Radu F Carroll Body Temperature 2022-09-24 14:32:00 98.60 degrees Radu F Carroll Heart Rate 2022-09-24 14:32:00 120.00 /min Step hen F Carroll Respiratory Rate 2022-09-24 14:32:00 Radu F Carroll Procedures Procedure Date / Time Performed Performing Clinicia n Source TROPONIN I 2023-02-15 16:19:00 [facility] LIP[facility] 2023-02-15 14:55:00 [facility] TROPONIN I 2023-02-15 14:55:00 [facility] COMP. METABOLIC PANEL (24305) 2023-02-15 14:55:00 Ashia Lua [facility] CBC WITH DIFF 2023-02-15 14:55:00 Ashia Lua [facility] N-TERMINAL PRO-BNP 2023-02-15 14:55:00 Ashia Lua [facility] XR CHEST 1 VW 2023-02-15 14:49:15 Ashia Lua [facility] NOTICE OF PRIVACY PRACTICES 2023-02-15 14:21:18 Doctor Unassigned, [place] [facility] CONSENT/REFUSAL FOR DIAGNOSIS AND TREATMENT 2023-02-15 14:20:43 Doctor Unassigned, [place] [facility] Encounters Start Date/Time End Date/Time Encounter Type Admission Type Attending [facility] Facility Care Department Encounter ID Source 2024-03-23 16:13:52 2024-03-23 16:13:52 Outpatient SFA [facility] [id number] Radu Hodges 2024-03-23 00:00:00 2024-03-23 00:00:00 Outpatient Visit [facility] [id number] Radu Hodges 2023-10-16 16:20:52 2023-10-16 16:20:52 Outpatient S[facility] [id number] Radu Hodges 2023-10-16 00:00:00 2023-10-16 00:00:00 Outpatient Visit [facility] [id number] Radu Hodges 2023-08-14 14:20:34 2023-08-14 14:20:34 Outpatient S[facility] [id number] Radu Hodges 2023-08-13 09:53:32 2023-08-13 09:53:32 Outpatient SFA [facility] [id number] Radu Hodges 2023-08-13 00:00:00 2023-08-13 00:00:00 Outpatient Visit [facility] [id number] Radu Hodges 2023-04-08 16:19:14 2023-04-08 16:19:14 Outpatient [facility] [id number] Radu Hodges 2023-04-08 00:00:00 2023-04-08 00:00:00 Outpatient Visit [facility] [id number] Radu Hodges 2023-02-19 00:00:00 2023-02-19 00:00:00 [address] Sharri Ortega [id number] General acute hospital 2023-02-15 08:28:00 2023-02-15 11:41:00 Emergency X ASHIA LUA [facility] ERT [id number] General acute hospital 2023-02-15 08:28:00 2023-02-15 11:41:00 Emergency Ashia Lua [facility] [id number] General acute hospital 2023-01-14 17:22:30 2023-01-14 17:22:30 Outpatient [facility] [id number] Radu Hodges 2022-11-22 08:13:53 2022-11-22 08:13:53 Outpatient [facility] [id number] Radu Hodges 2022-11-21 16:26:08 2022-11-21 16:26:08 Outpatient [facility] [id number] Radu Hodges 2022-11-21 00:00:00 2022-11-21 00:00:00 Outpatient Visit [facility] [id number] Radu Hodges 2022-11-01 17:18:04 2022-11-01 17:18:04 Outpatient [facility] [id number] Radu Hodges 2022-10-22 16:57:13 2022-10-22 16:57:13 Outpatient [facility] [id number] Radu Hodges 2022-10-22 00:00:00 2022-10-22 00:00:00 Outpatient Visit [facility] [id number] Radu Hodges 2022-09-24 14:32:53 2022-09-24 14:32:53 Outpatient [facility] [id number] Radu Hodges 2022-09-24 00:00:00 2022-09-24 00:00:00 Outpatient Visit [facility] [id number] Radu Hodges Results Test Description Test Time Test Comments Results Result Co mments Source [facility] [id number] 15:50:03* Test Item Value Reference Range Interpretation Comme nts NT-proBNP (test code = 47189-1) <=125 Lab Interpretation (test cod e = 93595-8) Normal [facility] [id number] 15:34:19* Test Item Value Reference Range Interpretation Comme nts TROPONIN I (test code = 6650613352) 0.004 ng/mL <=0.034 VIC (test code = VIC) Reference (Normal) Range (defined by the 99th percentile reference limit): <= 0.034 ng/mL Note: Cardiac troponin begins to rise 3-4 hours after the onset of ischemia. Repeat in 4-6 hours if the sample was drawn within 3-4 hours of the onset of the symptom and found normal. Diagnosis of myocardial injury is made with acute changes in cTn concentrations with at least one serial sample above the 99th percentile upper reference limit (URL), taken together with the patient's clinical presentation. Biotin has been reported to cause a negative bias, interpret results relative to patient's use of biotin. Lab Interpretation (test code = 13679-5) [facility] (48340)2023-02-15 15:23:18* Test Item Value Reference Range Interpretation Comme nts NA (test code = 7339441457) 138 mmol/L 135-145 K (test code = 7455169180) 4.2 mmol/L 3.5-5.0 CL (test code = 2781664901) 110 mmol/L 98-108 H CO2 TOTAL (test code = 8025702314) 18 mmol/L 23-31 L AGAP (test code = 4866907579) 10 2-16 BUN (test code = 6549040156) 14 mg/dL 7-23 GLUCOSE (test code = 8154251542) 139 mg/dL 70-110 H CREATININE (test code = 5151637396) 0.77 mg/dL 0.60-1.25 TOTAL BILI (test code = 4097837820) 0.9 mg/dL 0.1-1.1 CALCIUM (test code = 7036479881) 9.3 mg/dL 8.6-10.6 T PROTEIN (test code = 0580360694) 7.9 g/dL 6.3-8.2 ALBUMIN (test code = 4646261095) 4.2 g/dL 3.5-5.0 ALK PHOS (test code = 0367124616) 70 U/L 34-122 ALTv (test code = 1742-6) 44 U/L 5-50 AST(SGOT) (test code = 3600743294) 33 U/L 13-40 eGFR (test code = 06001-3) 122.0 mL/min/1.73m2 CKD-EPI eGFR (2020). Assuming creatinine has been stable day-to-day for at least three months, the eGFR indicates Category G1 (>= 90 mL/min/1.73 m2) Lab Interpretation (test code = 72995-3) [facility]normal [facility] 15:22:37* Test Item Value Reference Range Interpretation Comme nts LIPASE (test code = 5336752959) 72 U/L 0-220 Lab Interpretation (test cod e = 50742-5) Normal [facility] WITH [id number] 15:18:19* Test Item Value Reference Range Interpretation Comme nts WBC (test code = 6690-2) 7.42 See_Comment [Automated messa ge] The system which generated this result transmitted reference range: 4.20 - 10.70 10*3/?L. The reference range was not used to interpret this result as normal/abnormal. RBC (test code = 789-8) 4.76 See_Comment [Automated messa ge] The system which generated this result transmitted reference range: 4.26 - 5.52 10*6/?L. The reference range was not used to interpret this result as normal/abnormal. HGB (test code = 718-7) 15.3 g/dL 12.2-16.4 HCT (test code = 4544-3) 42.3 % 38.4-49.3 MCV (test code = 787-2) 88.9 fL 81.7-95.6 MCH (test code = 785-6) 32.1 pg 26.1-32.7 MCHC (test code = 786-4) 36.2 g/dL 31.2-35.0 H RDW-SD (test code = 97863-1) 39.8 fL 38.5-51.6 RDW-CV (test code = 788-0) 12.2 % 12.1-15.4 PLT (test code = 777-3) 226 See_Comment [Automated messa ge] The system which generated this result transmitted reference range: 150 - 328 10*3/?L. The reference range was not used to interpret this result as normal/abnormal. MPV (test code = 55382-2) 9.9 fL 9.8-13.0 NRBC/100 WBC (test code = 2405767306) 0.0 See_Comment [Automated me ssage] The system which generated this result transmitted reference range: 0.0 - 10.0 /100 WBCs. The reference range was not used to interpret this result as normal/abnormal. NRBC x10^3 (test code = 7961812623) See_Comment [Automated messa ge] The system which generated this result transmitted reference range: 10*3/?L. The reference range was not used to interpret this result as normal/abnormal. GRAN MAT (NEUT) % (test code = 770-8) 55.1 % IMM GRAN % (test code = 0528561206) 0.40 % LYMPH % (test code = 736-9) 29.6 % MONO % (test code = 5905-5) 9.4 % EOS % (test code = 713-8) 4.4 % BASO % (test code = 706-2) 1.1 % GRAN MAT x10^3(ANC) (test code = 5057707331) 4.08 10*3/uL 1.99-6.95 IMM GRAN x10^3 (test code = 0366136960) 0.03 10*3/uL 0.00-0.06 LYMPH x10^3 (test code = 731-0) 2.20 10*3/uL 1.09-3.23 MONO x10^3 (test code = 742-7) 0.70 10*3/uL 0.36-1.02 EOS x10^3 (test code = 711-2) 0.33 10*3/uL 0.06-0.53 BASO x10^3 (test code = 704-7) 0.08 10*3/uL 0.01-0.09 Lab Interpretation (test code = 99829-5) Abnormal [facility] [id number] 00:00:00* Test Item Value Reference Range Interpretation Comme nts GLUCOSE (test code = 2217) 119 MG/DL BUN (test code = 2208) 14 MG/DL CREATININE (test code = 2214) 0.88 MG/DL eGFR (2020 CKD-EPI) (test code = 47862) 117 ML/MIN/1.73 CALC BUN/CREAT (test code = 2235) 16 RATIO SODIUM (test code = 2231) 138 MEQ/L POTASSIUM (test code = 2228) 4.0 MEQ/L CHLORIDE (test code = 2215) 102 MEQ/L CARBON DIOXIDE (test code = 2206) 23 MEQ/L CALCIUM (test code = 2209) 9.4 MG/DL PROTEIN, TOTAL (test code = 2229) 7.4 G/DL ALBUMIN (test code = 2201) 4.7 G/DL CALC GLOBULIN (test code = 2240) 2.7 G/DL CALC A/G RATIO (test code = 2234) 1.7 RATIO BILIRUBIN, TOTAL (test code = 2207) 0.7 MG/DL ALKALINE PHOSPHATASE (test code = 2204) 85 U/L AST (test code = 2218) 18 U/L ALT (test code = 2219) 30 U/L Radu HodgesLIPID [id number] 00:00:00* Test Item Value Reference Range Interpretation Comme nts CHOLESTEROL (test code = 2210) 216 MG/DL TRIGLYCERIDES (test code = 2232) 209 MG/DL HDL CHOLESTEROL (test code = 2220) 38 MG/DL CALC LDL CHOL (test code = 2237) 143 MG/DL RISK RATIO LDL/HDL (test cod e = 2238) 3.76 RATIO Radu HodgesHEMOGLOBIN [id number] 00:00:00* Test Item Value Reference Range Interpretation Comme anjelica HEMOGLOBIN A1c (test code = 80050) 5.6 % Radu HodgesCOMPREHENSIVE METABOLIC [id number] 00:00:00* Test Item Value Reference Range Interpretation Comme nts GLUCOSE (test code = 2217) 119 MG/DL BUN (test code = 2208) 14 MG/DL CREATININE (test code = 2214) 0.88 MG/DL eGFR (2020 CKD-EPI) (test code = 41265) 117 ML/MIN/1.73 CALC BUN/CREAT (test code = 2235) 16 RATIO SODIUM (test code = 2231) 138 MEQ/L POTASSIUM (test code = 2228) 4.0 MEQ/L CHLORIDE (test code = 2215) 102 MEQ/L CARBON DIOXIDE (test code = 2206) 23 MEQ/L CALCIUM (test code = 2209) 9.4 MG/DL PROTEIN, TOTAL (test code = 2229) 7.4 G/DL ALBUMIN (test code = 2201) 4.7 G/DL CALC GLOBULIN (test code = 2240) 2.7 G/DL CALC A/G RATIO (test code = 2234) 1.7 RATIO BILIRUBIN, TOTAL (test code = 2207) 0.7 MG/DL ALKALINE PHOSPHATASE (test code = 2204) 85 U/L AST (test code = 2218) 18 U/L ALT (test code = 2219) 30 U/L Radu HodgesLIPID [id number] 00:00:00* Test Item Value Reference Range Interpretation Comme nts CHOLESTEROL (test code = 2210) 216 MG/DL TRIGLYCERIDES (test code = 2232) 209 MG/DL HDL CHOLESTEROL (test code = 2220) 38 MG/DL CALC LDL CHOL (test code = 2237) 143 MG/DL RISK RATIO LDL/HDL (test cod e = 2238) 3.76 RATIO Radu HodgesHEMOGLOBIN [id number] 00:00:00* Test Item Value Reference Range Interpretation Comme nts HEMOGLOBIN A1c (test code = 84602) 5.6 % Radu HodgesCOMPREHENSIVE METABOLIC [id number] 00:00:00* Test Item Value Reference Range Interpretation Comme nts GLUCOSE (test code = 2217) 119 MG/DL BUN (test code = 2208) 14 MG/DL CREATININE (test code = 2214) 0.88 MG/DL eGFR (2020 CKD-EPI) (test code = 93797) 117 ML/MIN/1.73 CALC BUN/CREAT (test code = 2235) 16 RATIO SODIUM (test code = 2231) 138 MEQ/L POTASSIUM (test code = 2228) 4.0 MEQ/L CHLORIDE (test code = 2215) 102 MEQ/L CARBON DIOXIDE (test code = 2206) 23 MEQ/L CALCIUM (test code = 2209) 9.4 MG/DL PROTEIN, TOTAL (test code = 2229) 7.4 G/DL ALBUMIN (test code = 2201) 4.7 G/DL CALC GLOBULIN (test code = 2240) 2.7 G/DL CALC A/G RATIO (test code = 2234) 1.7 RATIO BILIRUBIN, TOTAL (test code = 2207) 0.7 MG/DL ALKALINE PHOSPHATASE (test code = 2204) 85 U/L AST (test code = 2218) 18 U/L ALT (test code = 2219) 30 U/L Radu HodgesLIPID [id number] 00:00:00* Test Item Value Reference Range Interpretation Comme nts CHOLESTEROL (test code = 2210) 216 MG/DL TRIGLYCERIDES (test code = 2232) 209 MG/DL HDL CHOLESTEROL (test code = 2220) 38 MG/DL CALC LDL CHOL (test code = 2237) 143 MG/DL RISK RATIO LDL/HDL (test cod e = 2238) 3.76 RATIO Radu HodgesHEMOGLOBIN [id number] 00:00:00* Test Item Value Reference Range Interpretation Comme nts HEMOGLOBIN A1c (test code = 45489) 5.6 % Radu HodgesCOMPREHENSIVE METABOLIC [id number] 00:00:00* Test Item Value Reference Range Interpretation Comme nts GLUCOSE (test code = 2217) 119 MG/DL BUN (test code = 2208) 14 MG/DL CREATININE (test code = 2214) 0.88 MG/DL eGFR (2020 CKD-EPI) (test code = 75043) 117 ML/MIN/1.73 CALC BUN/CREAT (test code = 2235) 16 RATIO SODIUM (test code = 2231) 138 MEQ/L POTASSIUM (test code = 2228) 4.0 MEQ/L CHLORIDE (test code = 2215) 102 MEQ/L CARBON DIOXIDE (test code = 2206) 23 MEQ/L CALCIUM (test code = 2209) 9.4 MG/DL PROTEIN, TOTAL (test code = 2229) 7.4 G/DL ALBUMIN (test code = 2201) 4.7 G/DL CALC GLOBULIN (test code = 2240) 2.7 G/DL CALC A/G RATIO (test code = 2234) 1.7 RATIO BILIRUBIN, TOTAL (test code = 2207) 0.7 MG/DL ALKALINE PHOSPHATASE (test code = 2204) 85 U/L AST (test code = 2218) 18 U/L ALT (test code = 2219) 30 U/L Radu Toribio AustinLIPID [id number] 00:00:00* Test Item Value Reference Range Interpretation Comme nts CHOLESTEROL (test code = 2210) 216 MG/DL TRIGLYCERIDES (test code = 2232) 209 MG/DL HDL CHOLESTEROL (test code = 2220) 38 MG/DL CALC LDL CHOL (test code = 2237) 143 MG/DL RISK RATIO LDL/HDL (test cod e = 2238) 3.76 RATIO Radu HodgesHEMOGLOBIN [id number] 00:00:00* Test Item Value Reference Range Interpretation Comme nts HEMOGLOBIN A1c (test code = 94060) 5.6 % Radu Toribio AustinCOMPREHENSIVE METABOLIC [id number] 00:00:00* Test Item Value Reference Range Interpretation Comme nts GLUCOSE (test code = 2217) 119 MG/DL BUN (test code = 2208) 14 MG/DL CREATININE (test code = 2214) 0.88 MG/DL eGFR (2020 CKD-EPI) (test code = 74021) 117 ML/MIN/1.73 CALC BUN/CREAT (test code = 2235) 16 RATIO SODIUM (test code = 2231) 138 MEQ/L POTASSIUM (test code = 2228) 4.0 MEQ/L CHLORIDE (test code = 2215) 102 MEQ/L CARBON DIOXIDE (test code = 2206) 23 MEQ/L CALCIUM (test code = 2209) 9.4 MG/DL PROTEIN, TOTAL (test code = 2229) 7.4 G/DL ALBUMIN (test code = 2201) 4.7 G/DL CALC GLOBULIN (test code = 2240) 2.7 G/DL CALC A/G RATIO (test code = 2234) 1.7 RATIO BILIRUBIN, TOTAL (test code = 2207) 0.7 MG/DL ALKALINE PHOSPHATASE (test code = 2204) 85 U/L AST (test code = 2218) 18 U/L ALT (test code = 2219) 30 U/L Radu HodgesLIPID [id number] 00:00:00* Test Item Value Reference Range Interpretation Comme nts CHOLESTEROL (test code = 2210) 216 MG/DL TRIGLYCERIDES (test code = 2232) 209 MG/DL HDL CHOLESTEROL (test code = 2220) 38 MG/DL CALC LDL CHOL (test code = 2237) 143 MG/DL RISK RATIO LDL/HDL (test cod e = 2238) 3.76 RATIO Radu HodgesHEMOGLOBIN [id number] 00:00:00* Test Item Value Reference Range Interpretation Comme nts HEMOGLOBIN A1c (test code = 66566) 5.6 % Radu HodgesCOMPREHENSIVE METABOLIC [id number] 00:00:00* Test Item Value Reference Range Interpretation Comme nts GLUCOSE (test code = 2217) 119 MG/DL BUN (test code = 2208) 14 MG/DL CREATININE (test code = 2214) 0.88 MG/DL eGFR (2020 CKD-EPI) (test code = 55759) 117 ML/MIN/1.73 CALC BUN/CREAT (test code = 2235) 16 RATIO SODIUM (test code = 2231) 138 MEQ/L POTASSIUM (test code = 2228) 4.0 MEQ/L CHLORIDE (test code = 2215) 102 MEQ/L CARBON DIOXIDE (test code = 2206) 23 MEQ/L CALCIUM (test code = 2209) 9.4 MG/DL PROTEIN, TOTAL (test code = 2229) 7.4 G/DL ALBUMIN (test code = 2201) 4.7 G/DL CALC GLOBULIN (test code = 2240) 2.7 G/DL CALC A/G RATIO (test code = 2234) 1.7 RATIO BILIRUBIN, TOTAL (test code = 2207) 0.7 MG/DL ALKALINE PHOSPHATASE (test code = 2204) 85 U/L AST (test code = 2218) 18 U/L ALT (test code = 2219) 30 U/L Radu Toribio WaltonLIPID [id number] 00:00:00* Test Item Value Reference Range Interpretation Comme nts CHOLESTEROL (test code = 2210) 216 MG/DL TRIGLYCERIDES (test code = 2232) 209 MG/DL HDL CHOLESTEROL (test code = 2220) 38 MG/DL CALC LDL CHOL (test code = 2237) 143 MG/DL RISK RATIO LDL/HDL (test cod e = 2238) 3.76 RATIO Radu HodgesHEMOGLOBIN [id number] 00:00:00* Test Item Value Reference Range Interpretation Comme nts HEMOGLOBIN A1c (test code = 97469) 5.6 % Radu Toribio CarrollCOMPREHENSIVE METABOLIC [id number] 00:00:00* Test Item Value Reference Range Interpretation Comme nts GLUCOSE (test code = 2217) 119 MG/DL BUN (test code = 2208) 14 MG/DL CREATININE (test code = 2214) 0.88 MG/DL eGFR (2020 CKD-EPI) (test code = 40795) 117 ML/MIN/1.73 CALC BUN/CREAT (test code = 2235) 16 RATIO SODIUM (test code = 2231) 138 MEQ/L POTASSIUM (test code = 2228) 4.0 MEQ/L CHLORIDE (test code = 2215) 102 MEQ/L CARBON DIOXIDE (test code = 2206) 23 MEQ/L CALCIUM (test code = 2209) 9.4 MG/DL PROTEIN, TOTAL (test code = 2229) 7.4 G/DL ALBUMIN (test code = 2201) 4.7 G/DL CALC GLOBULIN (test code = 2240) 2.7 G/DL CALC A/G RATIO (test code = 2234) 1.7 RATIO BILIRUBIN, TOTAL (test code = 2207) 0.7 MG/DL ALKALINE PHOSPHATASE (test code = 2204) 85 U/L AST (test code = 2218) 18 U/L ALT (test code = 2219) 30 U/L Radu HodgesLIPID [id number] 00:00:00* Test Item Value Reference Range Interpretation Comme nts CHOLESTEROL (test code = 2210) 216 MG/DL TRIGLYCERIDES (test code = 2232) 209 MG/DL HDL CHOLESTEROL (test code = 2220) 38 MG/DL CALC LDL CHOL (test code = 2237) 143 MG/DL RISK RATIO LDL/HDL (test cod e = 2238) 3.76 RATIO Radu HodgesHEMOGLOBIN [id number] 00:00:00* Test Item Value Reference Range Interpretation Comme nts HEMOGLOBIN A1c (test code = 11788) 5.6 % Radu Hodges Notes Date/Time Note Provider Source [facility]2024-08-07 00:00:00 Radu FGenaro [facility]2024-06-04 00:00:00 [facility]2024-01-29 00:00:00 [facility]2023-09-13 00:00:00 [facility]2023-08-14 00:00:00 [facility]2023-07-17 00:00:00 [facility]
[2024-07-21] MEDS ORDERED: ASPIRIN 81 MG CHEWABLE TABLET ONE (01:32)
[2024-07-21 03:58] LABS: Absolute Basophils 0.1 K/uL (0-0.5); Absolute Eosinophils 0.4 K/uL (0-0.5); Absolute Lymphocytes (CBC) 2.9 K/uL (0.7-4.9); Absolute Monocytes 1.2 K/uL (0.1-1.3); Absolute Neutrophil 8.7 K/uL (1.8-8.0); Basophils % 0.5 % (0-1.3); Hematocrit 45.9 % (39.6-49.0); Hemoglobin 16.5 g/dL (13.6-17.9); Lymphocytes % 21.7 % (15.3-44.8); MCH 32.2 pg (27.0-35.0); MCV 89.2 fL (80-100); MPV 8.1 fL (7.6-11.3); Monocytes % 9.1 % (3.3-12.3); Neutrophils % 65.7 % (41.7-73.7); Platelets 252 thou/uL (152-406); RBC Red Blood Cell Count 5.15 M/uL (4.33-5.43); Red Cell Distribution Width 13.3 % (12.1-15.2)
[2024-07-21 04:01] LABS: D-Dimer 0.244 FEUug/mL (0-0.500); PT Prothrombin Time 12.9 SECONDS (10-13.0); Protime INR 1.14
[2024-07-21 04:08] LABS: Albumin 3.9 g/dL (3.4-5.0); Albumin/Globulin Ratio 0.9 (1.1-1.8); Anion Gap 11.6 mEq/L (5.0-15.0); Bilirubin Direct 0.2 mg/dL (0-0.2); Bilirubin Indirect, Calculated 0.8 mg/dL (0.2-0.8); Globulin 4.2 g/dL (2.3-3.5); Potassium 3.6 mEq/L (3.5-5.1); Protein, Total 8.1 g/dL (6.4-8.2); Thyroid Stimulating Hormone 1.68 uIU/mL (0.358-3.740); Troponin High Sensitivity 4.1 pg/mL (<58.9)
--- NOTE | 2024-07-21 04:37 | EDPHYS ---
Physician Documentation [facility] Name: Fred Billings Age: 33 yrs Sex: Male : 1990 Arrival Date: 07/21/2024 Time: 00:46 Bed 2 Private MD: ED Physician Radames Doran HPI: 07/21 00:49 This 33 yrs old Male presents to ER via Unassigned with complaints of Chest sp4 Pain, Shortness Of Breath. 07/22 02:27 Patient presents with approximately 2 months of worsening dyspnea on exertion.. Patient sp4 reported some chest discomfort as well and palpitations.. Historical: - Allergies: 07/21 01:35 PENICILLINS; bm8 01:12 No Known Allergies; vc1 - Home Meds: 01:12 None [Active]; vc1 - PMHx: 01:12 Premature; vc1 - PSHx: 01:12 None; vc1 - Immunization history:: Adult Immunizations up to date, Client reports having NOT received the Covid vaccine. - Infectious Disease History:: Denies. Denies. - Social history:: Smoking status: Patient denies any tobacco usage or history of. Smoking status: Patient denies any tobacco usage or history of. - Family history:: not pertinent. ROS: 07/22 02:27 Constitutional: Negative for fever, chills, and weight loss, positive dyspnea on sp4 exertion, positive chest discomfort positive palpitations All other systems are negative, Exam: 02:27 Constitutional: This is a well developed, well nourished patient who is awake, alert, sp4 and in no acute distress. Head/Face: Normocephalic, atraumatic. Eyes: Pupils equal round and reactive to light, extra-ocular motions intact. Lids and lashes normal. Conjunctiva and sclera are not injected. Cornea within normal limits. Periorbital areas with no swelling, redness, or edema. ENT: Nares patent. No nasal discharge, no septal abnormalities noted. Tympanic membranes are normal and external auditory canals are clear. Oropharynx with no redness, swelling, or masses, exudates, or evidence of obstruction, uvula midline. Mucous membranes moist. Neck: Trachea midline, no thyromegaly or masses palpated, and no cervical lymphadenopathy. Supple, full range of motion without nuchal rigidity, or vertebral point tenderness. Chest/axilla: Normal chest wall appearance and motion. Nontender with no deformity. No lesions are appreciated. Cardiovascular: Regular rate and rhythm with a normal S1 and S2. No gallops, murmurs, or rubs. Normal PMI, no JVD. No pulse deficits. Respiratory: Lungs have equal breath sounds bilaterally, clear to auscultation and percussion. No rales, rhonchi or wheezes noted. No increased work of breathing, no retractions or nasal flaring. Abdomen/GI: Soft, with normal bowel sounds. No distension or tympany. No guarding or rebound. No evidence of tenderness throughout. Back: No spinal tenderness. No costovertebral tenderness. Skin: Warm, dry with normal turgor. Normal color with no rashes, no lesions, and no evidence of cellulitis. MS/ Extremity: Pulses equal, no cyanosis. Neurovascular intact. Full, normal range of motion. Neuro: Awake and alert, GCS 15, oriented to person, place, time, and situation. Cranial nerves II-XII grossly intact. Motor strength 5/5 in all extremities. Sensory grossly intact. Psych: Awake, alert, with orientation to person, place and time. Behavior, mood, and affect are within normal limits 02:27 ECG was reviewed by the Attending Physician. EKG 0 119 normal sinus rhythm normal EKG rate 87. Vital Signs: 07/21 01:12 BP 166 / 117; Pulse 95; Resp 18; Temp 97.5; Pulse Ox 99% ; Weight 44.23 kg; Height 6 vc1 ft. 0 in. ; Pain 4/10; 01:33 BP 131 / 101; Pulse 83; Resp 17; Temp 98.1; Pulse Ox 99% on R/A; Pain 4/10; bm8 02:09 BP 132 / 81; Pulse 78; Resp 17; Temp 98.1; Pulse Ox 98% ; Pain 4/10; bm8 03:31 BP 126 / 94; Pulse 82; Resp 17; Temp 98.1; Pulse Ox 98% ; Pain 0/10; bm8 04:32 BP 125 / 93; Pulse 77; Resp 17; Temp 98.1; Pulse Ox 98% ; Pain 0/10; bm8 01:12 Body Mass Index 13.22 (44.23 kg, 182.88 cm) vc1 01:12 Pain Scale: Adult vc1 01:33 Pain Scale: Adult bm8 02:09 Pain Scale: Adult bm8 03:31 Pain Scale: Adult bm8 04:32 Pain Scale: Adult bm8 [place] Coma Score: 01:35 Eye Response: spontaneous(4). Motor Response: obeys commands(6). Verbal Response: bm8 oriented(5). Total: 15. 02:09 Eye Response: spontaneous(4). Motor Response: obeys commands(6). Verbal Response: bm8 oriented(5). Total: 15. 03:31 Eye Response: spontaneous(4). Motor Response: obeys commands(6). Verbal Response: bm8 oriented(5). Total: 15. 04:32 Eye Response: spontaneous(4). Motor Response: obeys commands(6). Verbal Response: bm8 oriented(5). Total: 15. 07/22 02:27 Eye Response: spontaneous(4). Motor Response: obeys commands(6). Verbal Response: sp4 oriented(5). Total: 15. MDM: 07/21 00:56 Medical Screening Exam initiated sp4 03:37 ED course: EXAM: XR Chest, 1 View CLINICAL HISTORY: The patient is 33 years old and is sp4 Male; CHEST PAIN TECHNIQUE: Frontal view of the chest. COMPARISON: No relevant prior studies available. FINDINGS: LUNGS: Unremarkable. No consolidation. PLEURAL SPACE: Unremarkable. No pneumothorax. HEART: Unremarkable. No cardiomegaly. MEDIASTINUM: Unremarkable. Normal mediastinal contour. BONES/JOINTS: Unremarkable. No acute fracture. UPPER ABDOMEN: Unremarkable as visualized. IMPRESSION: No acute cardiopulmonary process. . 07/22 02:29 Differential diagnosis: acute pericarditis, anxiety, chest wall pain, esophagitis, sp4 gastritis. HEART Score: History: Slightly Suspicious (0), ECG: Normal (0), Age: < or = 45 years (0), Risk Factors: No Risk Factors Known (0), Troponin: < or = 1 x Normal Limit (0), Total Score = 0. Data reviewed: vital signs, nurses notes, old medical records, lab test result(s), EKG, radiologic studies, plain films. Consideration of Admission/Observation Escalation of care including admission/observation considered. ED course: Patient has unremarkable workup. We suspect actually sleep apnea. Patient was advised to visit nurse's assistant on outpatient basis for echocardiogram and stress test. Also advised to have outpatient sleep study. At this time stable for discharge home. 07/21 01:03 Order name: Basic Metabolic Panel; Complete Time: 04:07/21 01:03 Order name: CBC with Diff; Complete Time: 04:07/21 01:03 Order name: D-Dimer; Complete Time: 04:07/21 01:03 Order name: LFT's; Complete Time: 04:07/21 01:03 Order name: Magnesium; Complete Time: 04:07/21 01:03 Order name: NT PRO-BNP; Complete Time: 04:07/21 01:03 Order name: PT-INR; Complete Time: 04:07/21 01:03 Order name: Troponin HS; Complete Time: 04:07/21 01:03 Order name: TSH; Complete Time: :07/21 01:03 Order name: T4 Free; Complete Time: 04:07/21 01:03 Order name: XRAY Chest (1 view) 07/21 01:03 Order name: EKG; Complete Time: 01:07/21 01:03 Order name: Cardiac monitoring; Complete Time: 07/21 01:03 Order name: EKG - Nurse/Tech; Complete Time: 07/21 01:03 Order name: IV Saline Lock; Complete Time: 07/21 01:03 Order name: Labs collected and sent; Complete Time: 07/21 01:03 Order name: O2 Per Protocol; Complete Time: 07/21 01:03 Order name: O2 Sat Monitoring; Complete Time: EC/13 01:19 Rate is 87 beats/min. Rhythm is regular, Normal Sinus Rhythm. QRS [place] is Normal. [place] sp4 interval is normal. QRS interval is normal. QT interval is normal. No Q waves. T waves are Normal. No ST changes noted. Clinical impression: Normal ECG. Interpreted by me. Reviewed by me. Administered Medications: : Drug: Aspirin PO Chewable Tablet 324 mg PO once; 81 mg tablets x 4 Route: PO; bm8 02:10 Follow up: Response: No adverse reaction bm8 Disposition Summary: 07/21/24 04:35 Discharge Ordered Problem: new sp4 Symptoms: have improved sp4 Condition: Stable sp4 Diagnosis - Dyspnea on exertion, noncardiac chest pain sp4 Followup: sp4 - With: Parminder Jamison MD - When: 7 - 10 days - Reason: Recheck today's complaints Discharge Instructions: - Discharge Summary Sheet sp4 - Nonspecific Chest Pain, Adult, [id number] sp4 - Sleep Apnea, [id number] sp4 Forms: - Patient Portal Instructions sp4 - Work release form vk Signatures: Dispatcher [employer] EDMS Rashmi Rodriguez, RN RN vc1 Radames Doran MD MD sp4 Vishnu Thompson RN RN bm8 Corrections: (The following items were deleted from the chart) 01:03 01:03 THYROID STIMULAT HORMONE+C.LAB.BRZ ordered. EDMS EDMS 01:03 01:03 T4 FREE+C.LAB.BRZ ordered. EDMS EDMS
--- NOTE | 2024-07-21 04:37 | ER ---
Nurse's Notes [facility] Name: Fred Billings Age: 33 yrs Sex: Male : 1990 Arrival Date: 07/21/2024 Time: 00:46 Bed 2 Private MD: Diagnosis: Dyspnea on exertion, noncardiac chest pain Presentation: 07/21 01:12 Chief complaint: Patient states: chest pain and shortness of breath times 3 months. vc1 01:12 Coronavirus screen: Client denies travel out of the [place] in the last 14 days. At this vc1 time, the client does not indicate any symptoms associated with coronavirus-19. Ebola Screen: Patient negative for fever greater than or equal to 101.5 degrees Fahrenheit, and additional compatible Ebola Virus Disease symptoms Patient denies exposure to infectious person. Patient denies travel to an Ebola-affected area in the 21 days before illness onset. No symptoms or risks identified at this time. Initial Sepsis Screen: Does the patient meet any 2 criteria? No. Patient's initial sepsis screen is negative. Does the patient have a suspected source of infection? No. Patient's initial sepsis screen is negative. Risk Assessment: Do you want to hurt yourself or someone else? Patient reports no desire to harm self or others. Onset of symptoms is unknown. 01:12 Method Of Arrival: Ambulatory vc1 01:12 Acuity: NORIS 3 vc1 Triage Assessment: 01:33 General: Appears in no apparent distress. comfortable, Behavior is calm, cooperative, bm8 appropriate for age. Pain: Complains of pain in chest Pain currently is 4 out of 10 on a pain scale. EENT: No deficits noted. No signs and/or symptoms were reported regarding the EENT system. Neuro: No deficits noted. Level of Consciousness is awake, alert, obeys commands, Oriented to person, place, time, situation, Appropriate for age. Cardiovascular: Reports chest pain, shortness of breath, Heart tones S1 S2 present Capillary refill < 3 seconds in bilateral fingers Patient's skin is warm and dry. Rhythm is sinus rhythm. Respiratory: Reports shortness of breath Airway is patent Respiratory effort is even, unlabored, Respiratory pattern is regular, symmetrical, Breath sounds are clear bilaterally. GI: No signs and/or symptoms were reported involving the gastrointestinal system. : No signs and/or symptoms were reported regarding the genitourinary system. Derm: No signs and/or symptoms reported regarding the dermatologic system. Musculoskeletal: No signs and/or symptoms reported regarding the musculoskeletal system. Historical: - Allergies: :35 PENICILLINS; bm8 01:12 No Known Allergies; vc1 - Home Meds: 01:12 None [Active]; vc1 - PMHx: 01:12 Premature; vc1 - PSHx: 01:12 None; vc1 - Immunization history:: Adult Immunizations up to date, Client reports having NOT received the Covid vaccine. - Infectious Disease History:: Denies. Denies. - Social history:: Smoking status: Patient denies any tobacco usage or history of. Smoking status: Patient denies any tobacco usage or history of. - Family history:: not pertinent. Screenin:35 [facility] ED Fall Risk Assessment (Adult) History of falling in the last 3 months, bm8 including since admission No falls in past 3 months (0 pts) Confusion or Disorientation No (0 pts) Intoxicated or Sedated No (0 pts) Impaired Gait No (0 pts) Mobility Assist Device Used No (0 pt) Altered Elimination No (0 pt) Score/Fall Risk Level 0 - 2 = Low Risk Oriented to surroundings, Maintained a safe environment, Educated pt \T\ family on fall prevention, incl call for assistance when getting out of bed, Assessed \T\ reinforced patient's understanding of fall precautions, Hourly rounding (assess needs \T\ fall precautionary measures) done, Used ambulatory aids as needed (educated on \T\ assisted with), Used gait belt as appropriate. 01:37 Abuse screen: Denies threats or abuse. Nutritional screening: No deficits noted. vc1 Tuberculosis screening: No symptoms or risk factors identified. Assessment: 01:35 Reassessment: see triage assessment. bm8 02:09 Reassessment: Patient appears in no apparent distress at this time. No changes from bm8 previously documented assessment. Patient and/or family updated on plan of care and expected duration. Pain level reassessed. Patient is alert, oriented x 3, equal unlabored respirations, skin warm/dry/pink. 03:31 Reassessment: Patient appears in no apparent distress at this time. Patient and/or bm8 family updated on plan of care and expected duration. Pain level reassessed. Patient is alert, oriented x 3, equal unlabored respirations, skin warm/dry/pink. Patient denies pain at this time. Patient states feeling better. Patient states symptoms have improved. Pain: Denies pain. Pain does not radiate. Pain began 3 months. 04:32 Reassessment: Patient appears in no apparent distress at this time. Patient and/or bm8 family updated on plan of care and expected duration. Pain level reassessed. Patient is alert, oriented x 3, equal unlabored respirations, skin warm/dry/pink. Patient denies pain at this time. Patient states feeling better. Patient states symptoms have improved. Vital Signs: 01:12 BP 166 / 117; Pulse 95; Resp 18; Temp 97.5; Pulse Ox 99% ; Weight 44.23 kg; Height 6 vc1 ft. 0 in. ; Pain 4/10; 01:33 BP 131 / 101; Pulse 83; Resp 17; Temp 98.1; Pulse Ox 99% on R/A; Pain 4/10; bm8 02:09 BP 132 / 81; Pulse 78; Resp 17; Temp 98.1; Pulse Ox 98% ; Pain 4/10; bm8 03:31 BP 126 / 94; Pulse 82; Resp 17; Temp 98.1; Pulse Ox 98% ; Pain 0/10; bm8 04:32 BP 125 / 93; Pulse 77; Resp 17; Temp 98.1; Pulse Ox 98% ; Pain 0/10; bm8 01:12 Body Mass Index 13.22 (44.23 kg, 182.88 cm) vc1 01:12 Pain Scale: Adult vc1 01:33 Pain Scale: Adult bm8 02:09 Pain Scale: Adult bm8 03:31 Pain Scale: Adult bm8 04:32 Pain Scale: Adult bm8 [place] Coma Score: 01:35 Eye Response: spontaneous(4). Motor Response: obeys commands(6). Verbal Response: bm8 oriented(5). Total: 15. 02:09 Eye Response: spontaneous(4). Motor Response: obeys commands(6). Verbal Response: bm8 oriented(5). Total: 15. 03:31 Eye Response: spontaneous(4). Motor Response: obeys commands(6). Verbal Response: bm8 oriented(5). Total: 15. 04:32 Eye Response: spontaneous(4). Motor Response: obeys commands(6). Verbal Response: bm8 oriented(5). Total: 15. 07/22 02:27 Eye Response: spontaneous(4). Motor Response: obeys commands(6). Verbal Response: sp4 oriented(5). Total: 15. ED Course: 07/21 00:48 Patient arrived in ED. mr 00:49 Radames Doran MD is Attending Physician. sp4 01:26 XRAY Chest (1 view) In Process Unspecified. EDMS 01:33 Vishnu Thompson, RN is Primary Nurse. bm8 01:33 Arm band placed on left wrist. bm8 01:35 Patient has correct armband on for positive identification. Placed in gown. Bed in low bm8 position. Call light in reach. Side rails up X 1. Client placed on continuous cardiac and pulse oximetry monitoring. NIBP monitoring applied. picker and sorter load and unload on. Pulse ox on. NIBP on. Door closed. Noise minimized. Warm blanket given. Pillow given. Verbal reassurance given. Head of bed elevated. 01:35 No provider procedures requiring assistance completed. Initial lab(s) drawn, by patrice carey sent to lab. EKG done, by ED staff, reviewed by Radames Doran MD. Inserted saline lock: 20 gauge in right hand, using aseptic technique. Blood collected. Flushed with 10 mL NS. Patient maintains SpO2 saturation greater than 95% on room air. 01:36 Triage completed. vc1 04:35 Parminder Jamison MD is Referral Physician. sp4 04:36 Provided Education on: POST ER CARE. bm8 04:36 IV discontinued, intact, bleeding controlled, No redness/swelling at site. Pressure bm8 dressing applied. Administered Medications: 01:33 Drug: Aspirin PO Chewable Tablet 324 mg PO once; 81 mg tablets x 4 Route: PO; bm8 02:10 Follow up: Response: No adverse reaction bm8 Medication: 01:35 VIS not applicable for this client. bm8 Outcome: 04:35 Discharge ordered by . sp4 04:36 Patient left the ED. bm8 04:36 Discharged to home ambulatory, bm8 04:36 Condition: stable 04:36 Discharge instructions given to patient, family, Instructed on discharge instructions, follow up and referral plans. no drinking with medication, no driving heavy equipment, medication usage, safety practices, Demonstrated understanding of instructions, follow-up care, medications, Prescriptions given X 2, Signatures: Dispatcher [employer] Kaia Walsh, Reg Reg mr Rashmi Rodriguez, RN RN vc1 Radames Doran MD MD sp4 Vishnu Thompson RN RN bm8 Corrections: (The following items were deleted from the chart) 04:37 04:35 Reassessment: [employer] CALLED SPOKE WITH SANDRINE SILVA #[id number] bm8 bm8
[2024-07-21 04:55] VITALS: TEMP 98.1
[2024-07-21 05:01] VITALS: O2SAT 98
[2024-07-21 05:04] VITALS: BP 125/93
--- NOTE | 2024-07-21 06:12 | RAD REPORT ---
EXAM: XR Chest, 1 View CLINICAL HISTORY: The patient is 33 years old and is Male; CHEST PAIN TECHNIQUE: Frontal view of the chest. COMPARISON: No relevant prior studies available. FINDINGS: LUNGS: Unremarkable. No consolidation. PLEURAL SPACE: Unremarkable. No pneumothorax. HEART: Unremarkable. No cardiomegaly. MEDIASTINUM: Unremarkable. Normal mediastinal contour. BONES/JOINTS: Unremarkable. No acute fracture. UPPER ABDOMEN: Unremarkable as visualized. IMPRESSION: No acute cardiopulmonary process. Electronically signed by: Odilia Young MD 07/21/2024 02:39 AM CDT Due to temporary technical issues with the PACS/[employer] reporting system, reports are being daphney d by the in-house radiologist without review as a courtesy to ensure prompt reporting the interpreting radiologist is fully responsible for the content of the report. Transcribed Date/Time: 07/21/2024 6:11 AM
--- NOTE | 2024-07-22 12:22 | EKG ---
Test Date: 2024-07-21 Test Time: 01:19:13 Aquatics Director: AF MEASUREMENT RESULTS: Intervals: Rate: 87 DE: 156 QRSD: 96 QT: 364 QTc: 438 [place]: P: 49 DE: 156 QRS: 72 T: 34 INTERPRETIVE STATEMENTS: Normal sinus rhythm Normal ECG Compared to ECG 09/03/2022 08:57:51 Sinus tachycardia no longer present T-wave abnormality no longer present Electronically Signed On 07-22-24 12:20:35 CDT by Long Pina
== END 2024-07-21 04:36 | disposition home or self-care (01) ==
LOC: ER 00:46
DX: R07.89 Other chest pain (principal); R06.09 Other forms of dyspnea; R00.2 Palpitations
CPT/HCPCS: 36415; 71045; 80048; 80076; 83735; 83880; 84439; 84443; 84484; 85025; 85379; 85610; 93005; 99285